=== PATIENT | male | born 1960 | race Caucasian/White ===

== ENCOUNTER 2022-04-15 05:58 | Day surgery (SDC) | payer BC ==
[2022-04-14 14:21] VITALS: BMI 26.3
[2022-04-15] MEDS ORDERED: CEFAZOLIN 2 GM in DEXTROSE 5%-WATER - 50 ML IVPB ONE (06:30)
[2022-04-15] MEDS ORDERED: KETOROLAC TROMETHAMINE 30 MG/1 ML VIAL ONE (07:06)
[2022-04-15] MEDS ORDERED: ONDANSETRON 4 MG/2 ML VIAL ONE (07:06)
[2022-04-15] MEDS ORDERED: DEXAMETHASONE SOD PHOSPHATE 4 MG/1 ML VIAL ONE (07:06)
[2022-04-15] MEDS ORDERED: ceFAZolin SODIUM 1 GM VIAL ONE (07:06)
[2022-04-15] MEDS ORDERED: MIDAZOLAM HCL 2 MG/2 ML SINGLE DOSE VIAL ONE (07:06)
[2022-04-15] MEDS ORDERED: PROPOFOL 60 ML ONE (07:06)
[2022-04-15] MEDS ORDERED: ACETAMINOPHEN INJECTION 100 ML IVPB ONE (07:14)
[2022-04-15] MEDS ORDERED: BUPIVACAINE LIPOSOME/PF (EXPAREL) 266 MG/20 ML VIAL ONE (07:14)
[2022-04-15] MEDS ORDERED: BUPIVACAINE HCL/PF 0.5% (5MG/ML) 10 ML VIAL ONE (07:14)
[2022-04-15] MEDS ORDERED: TRANEXAMIC ACID 1000 MG/10 ML VIAL IVPUSH ONE (07:30)
[2022-04-15] MEDS ORDERED: TRANEXAMIC ACID 1000 MG/10 ML VIAL ONE (08:00)
[2022-04-15] MEDS ORDERED: PHENYLEPHRINE HCL 10 MG/1 ML SINGLE DOSE VIAL ONE (08:03)
[2022-04-15] MEDS ORDERED: PROPOFOL 20 ML ONE (09:25)
[2022-04-15] MEDS ORDERED: MAG HYDROX/AL HYDROX/SIMETH 30 ML UNIT-DOSE CUP PO PRN (10:27)
[2022-04-15] MEDS ORDERED: ONDANSETRON 4 MG/2 ML VIAL IVPUSH PRN (10:27)
[2022-04-15] MEDS ORDERED: LACTATED RINGERS SOLUTION 1,000 ML IV SCH (10:30)
[2022-04-15] MEDS ORDERED: oxyCODONE HCL 5 MG TABLET PO PRN (10:36)
[2022-04-15] MEDS ORDERED: ACETAMINOPHEN 325 MG TABLET (FP) PO PRN (10:58)
[2022-04-15] MEDS: ACETAMINOPHEN 1000 MG/100 ML BAG IVPB SCH (14:02)
[2022-04-15] MEDS: oxyCODONE HCL 5 MG TABLET PO PRN ×2 (14:22→18:37)
[2022-04-15] MEDS: CEFAZOLIN SODIUM 2 GM in DEXTROSE 5%-WATER 100 ML IVPB SCH (16:30)
[2022-04-15] MEDS ORDERED: CELECOXIB 200 MG CAPSULE PO SCH (22:00)
[2022-04-15] MEDS ORDERED: ATORVASTATIN CA 40 MG TABLET (FP) PO SCH (22:00)
[2022-04-15] MEDS ORDERED: traZODone HCL 50 MG TABLET (FP) PO SCH (22:00)
[2022-04-15] MEDS ORDERED: EZETIMIBE 10 MG TABLET (FP) PO SCH (22:00)
[2022-04-15] MEDS ORDERED: DEXAMETHASONE SOD PHOSPHATE 4 MG/1 ML VIAL IVPUSH ONE (22:00)
[2022-04-15] MEDS: SENNOSIDES/DOCUSATE COMBO (SENNA PLUS) TABLET (UD) PO SCH (22:17)
[2022-04-15] MEDS: FAMOTIDINE 20 MG TABLET PO SCH (22:22)
[2022-04-15] MEDS: ASPIRIN 81 MG CHEWABLE TABLETS PO SCH (22:23)
[2022-04-16] MEDS: CEFAZOLIN SODIUM 2 GM in DEXTROSE 5%-WATER 100 ML IVPB SCH (00:24)
[2022-04-16] MEDS: oxyCODONE HCL 5 MG TABLET PO PRN ×3 (03:19→13:19)
[2022-04-16] MEDS: ACETAMINOPHEN 1000 MG/100 ML BAG IVPB SCH ×2 (06:44→07:47)
[2022-04-16 07:01] VITALS: RESP 18
[2022-04-16] MEDS ORDERED: DEXAMETHASONE 4 MG TABLET (FP) PO ONE (08:00)
[2022-04-16] MEDS: SENNOSIDES/DOCUSATE COMBO (SENNA PLUS) TABLET (UD) PO SCH (09:21)
[2022-04-16] MEDS: FAMOTIDINE 20 MG TABLET PO SCH (09:21)
[2022-04-16] MEDS: ASPIRIN 81 MG CHEWABLE TABLETS PO SCH (09:21)
[2022-04-16] MEDS ORDERED: amLODIPine BESYLATE 5 MG TABLET (FP) PO SCH (10:00)
[2022-04-16] MEDS ORDERED: CELECOXIB 200 MG CAPSULE PO SCH (10:00)
[2022-04-16] MEDS ORDERED: PATIENT'S OWN MEDICATION (NON-FORMULARY) (Omeprazole [Omeprazole] 20 MG Tab.Rap.Dr) PO SCH (10:00)
[2022-04-16 14:02] VITALS: BP 114/74; PULSE 64; TEMP 98
== END 2022-04-16 03:30 | disposition home or self-care (01) ==
LOC: FASUSAT 05:58 → FM/S 11:31 → FASUSAT 04-16 03:30
PROVIDERS: ATTEND Orthopaedic Surgery
PROC: 0SRC0J9 Replacement of Right Knee Joint with Synthetic Substitute, Cemented, Open Approach (ICD-10-PCS; principal; 2022-04-15 08:20)
DX: M17.11 Unilateral primary osteoarthritis, right knee (principal)
CPT/HCPCS: 27447; C1776; 73560-TC-RT-FY; 94760; 97010-GP; 97116-GP; 97161-GP; C1889